=== PATIENT | female | born 1945 | race Caucasian/White ===

== ENCOUNTER → 2018-01-19 | Day surgery (SDC) | payer OTHER ==
[~2018-01-19] MED LIST: CLB200 PO; LRT5 PO; OXYSR10 PO; TEMA30CA4 PO
== END | disposition home or self-care (01) ==
LOC: C.ACU 15:06
PROVIDERS: ATTEND Surgery
DX: K56.609 Unspecified intestinal obstruction, unspecified as to partial versus complete obstruction (principal); Z43.3 Encounter for attention to colostomy